=== PATIENT | female | born 1990 | race Caucasian/White ===

== ENCOUNTER 2018-12-11 06:53 | Emergency (ER) | payer BC ==
[~2018-12-11] VITALS: Wt 80.0 kg
[2018-12-11 06:54] VITALS: BP 140/88; PULSE 88; RESP 18
[2018-12-11] MEDS ORDERED: D-ME473S2 PO (07:25)
[2018-12-11] MEDS ORDERED: IBUP-1542 PO (07:25)
[2018-12-11] MEDS ORDERED: AZIT250T PO (07:25)
--- NOTE | 2018-12-11 07:27 | ERD ---
ER Documentation Chief Complaint Chief Complaint flu , couh , javy era aches, st HPI 28-year-old male presents with one-week history of productive cough. She is also has bilateral ear pain and sore throat. May have had fevers at home but no fever triage no measured temperature. Denies chest pain, vomiting, abdominal pain ROS All systems reviewed and are negative except as per history of present illness. Medications Home Meds Active Scripts Azithromycin* (Zithromax*) 250 Mg Tablet, 250 MG PO .ZPACK DIRECTED, #6 TAB TAKE 500 MG (2 TABS) THE FIRST DAY THEN 250 MG (1 TAB) DAYS 2-5 Prov:SUSAN YU MD 12/11/18 Dextromethorphan Hb-Promethazine Hcl* (Promethazine DM* Syrup) 473 Ml Syrup, 5 ML PO Q6 PRN for COUGH for 5 Days, ML Prov:SUSAN YU MD 12/11/18 Ibuprofen* (Motrin*) 600 Mg Tab, 600 MG PO Q6, #15 TAB Prov:SUSAN YU MD 12/11/18 Allergies Allergies: Coded Allergies: No Known Allergies (Verified Allergy, Unknown, 09/19/13) PMhx/Soc History of Surgery: Yes (Appendix) Anesthesia Reaction: No Hx Neurological Disorder: No Hx Respiratory Disorders: No Hx Cardiac Disorders: No Hx Psychiatric Problems: No Hx Miscellaneous Medical Probl: Yes (DRUG ABUSE) Hx Alcohol Use: Yes (Socially) Hx Substance Use: No Hx Tobacco Use: No FmHx Family History: No diabetes, No coronary disease, No other Physical Exam Vitals Vital Signs Date Temp Pulse Resp B/P (MAP) Pulse Ox O2 O2 Flow FiO2 Time Delivery Rate 12/11/18 97.8 88 18 140/88 97 06:54 (105) Physical Exam Const: No acute distress Head: Atraumatic Eyes: Normal Conjunctiva ENT: Normal External Ears, Nose and Mouth. Clear fluid decreased light reflex. Nasal congestion. Postnasal drip. Neck: Full range of motion. No meningismus. Resp: Clear to auscultation bilaterally. Coarse cough without rales, wheezing or retractions. Cardio: Regular rate and rhythm, no murmurs Abd: Soft, non tender, non distended. Normal bowel sounds Skin: No petechiae or rashes Back: No midline or flank tenderness Ext: No cyanosis, or edema Neur: Awake and alert Psych: Normal Mood and Affect Procedures/MDM Patient presents with URI symptoms worsening over the last week. She has numbness of hypoxemia, rest or distress, signs of pneumonia on exam. Given the duration patient request productive cough she will be treated empirically with Zithromax, promethazine, ibuprofen, primary care follow-up and return precautions. The patient was stable with no new complaints during the ER course. Clinically, there is no current evidence to suggest meningitis, sepsis, acute abdomen, pneumonia, stroke, acute coronary syndrome, pulmonary embolism, aortic dissection or any other emergent condition appearing to require further evaluation or hospitalization. Patient counseled regarding my diagnostic impression and care plan. Prior to discharge all questions answered. Pt agrees with treatment plan and understands strict return precautions. Pt is instructed to follow up with primary care provider within 24-48 hours. Precautionary instructions provided including instructions to return to the ER if not improving or for any worsening or changing symptoms or concerns. Disclaimer: Inadvertent spelling and grammatical errors are likely due to EHR/dictation software use and do not reflect on the overall quality of patient care. Also, please note that the electronic time recorded on this note does not necessarily reflect the actual time of the patient encounter. Departure Diagnosis: Primary Impression: Upper respiratory infection URI type: unspecified URI Qualified Codes: J06.9 - Acute upper respiratory infection, unspecified Condition: Stable Patient Instructions: Bronchitis, Antiobiotic Treatment (Adult) Referrals: NO PRIMARY,CARE PHYSICIAN (PCP) Additional Instructions: Recheck for new or worsening symptoms with primary care doctor. SUSAN YU MD Dec 11, 2018 07:27
== END 2018-12-11 07:53 | disposition home or self-care (01) ==
LOC: FTE 06:53
DX: J06.9 Acute upper respiratory infection, unspecified (principal)
CPT/HCPCS: 99283

== ENCOUNTER 2019-01-25 07:53 | Emergency (ER) | payer BC ==
[~2019-01-25] VITALS: Ht 157.5 cm; Wt 87.0 kg
[~2019-01-25 07:53] MED LIST: AZIT250T PO; D-ME473S2 PO; IBUP-1542 PO
[2019-01-25 07:55] VITALS: BP 156/90; PULSE 88; RESP 18; Ht 157.5 cm; Wt 87.0 kg
[2019-01-25] MEDS ORDERED: IBUPROFEN 800 MG TAB PO ONE (09:00)
--- NOTE | 2019-01-25 09:17 | ERD ---
ER Documentation Chief Complaint Chief Complaint B/L FOOT PAIN AND SWELLING X 3 DAYS , DENIES INJURY HPI This is a 29-year-old female with a history of hypertension who presents ED with bilateral foot/ankle pain times 3 days. Localizes pain to the bilateral ankles. Patient states that yesterday after doing a lot of heavy walking she noticed that her feet are swollen. Patient states that the swelling has subsided. Patient denies any lower leg pain or swelling. Denies any fever, chills, redness, tingling, numbness, lack sensation, purulent drainage. No known drug allergies. Denies chest pain, shortness breath, trouble breathing. ROS All systems reviewed and are negative except as per history of present illness. Medications Home Meds Active Scripts Azithromycin* (Zithromax*) 250 Mg Tablet, 250 MG PO .ZPACK DIRECTED, #6 TAB TAKE 500 MG (2 TABS) THE FIRST DAY THEN 250 MG (1 TAB) DAYS 2-5 Prov:SUSAN YU MD 12/11/18 Dextromethorphan Hb-Promethazine Hcl* (Promethazine DM* Syrup) 473 Ml Syrup, 5 ML PO Q6 PRN for COUGH for 5 Days, ML Prov:SUSAN YU MD 12/11/18 Ibuprofen* (Motrin*) 600 Mg Tab, 600 MG PO Q6, #15 TAB Prov:SUSAN YU MD 12/11/18 Allergies Allergies: Coded Allergies: No Known Allergies (Verified Allergy, Unknown, 09/19/13) PMhx/Soc History of Surgery: Yes (Appendectomy) Anesthesia Reaction: No Hx Neurological Disorder: No Hx Respiratory Disorders: No Hx Cardiac Disorders: Yes (htn) Hx Psychiatric Problems: No Hx Miscellaneous Medical Probl: Yes (DRUG ABUSE) Hx Alcohol Use: Yes (Socially) Hx Substance Use: No Hx Tobacco Use: No Smoking Status: Never smoker Physical Exam Vitals Vital Signs Date Temp Pulse Resp B/P (MAP) Pulse Ox O2 O2 Flow FiO2 Time Delivery Rate 01/25/19 98.5 88 18 156/90 100 07:55 (112) Physical Exam Const: No acute distress Head: Atraumatic Eyes: Normal Conjunctiva ENT: Normal External Ears, Nose and Mouth. Neck: Full range of motion. No meningismus. Resp: Clear to auscultation bilaterally Cardio: Regular rate and rhythm, no murmurs Ext: No cyanosis, or edema Lower Extremity - bilateral: Skin: No laceration Compartments: Soft Motor: Full active range of motion hip/knee/ankle/foot Sensation: Intact to light touch FDWS/MF/LF/P surfaces. Bones: Nontender pelvis/knee/proximal tibia/ malleoli/foot Joints: No effusion or laxity Pulses/Perfusion: 2+ DP, Capillary refill < 2 seconds No calf swelling or calf tenderness, Homans sign negative, no calf size discrepancy Neur: Awake and alert Psych: Normal Mood and Affect Results 24 hrs Current Medications Medications Dose Sig/Rena Start Time Status Last (Trade) Ordered Route PRN Stop Time Admin Dose Reason Admin Ibuprofen 800 mg ONCE ONCE 01/25/19 DC 01/25/19 (Motrin) PO 09:00 09:03 01/25/19 09:01 Procedures/MDM EKG, MONITORS, & DIAGNOSTIC IMAGING: [place] [address] Radiology Main Line: [phone] DIAGNOSTIC IMAGING REPORT Patient: TATO MORAN : 1990 Age: 29 Sex: F MR #: [id number] DOS: 01/25/19 0852 Ordering MD: DRE ROGERS PA-C Location: [facility] Room/Bed: PROCEDURE: XR Ankle. CLINICAL INDICATION: Pain TECHNIQUE: AP, oblique and lateral views of the left ankle were performed. COMPARISON: None. FINDINGS: There is normal mineralization and alignment. No acute fracture or osseous lesion is identified. The joints are normal. The soft tissues are unremarkable. RPTAT: AA IMPRESSION: Unremarkable left ankle. .Juan Miguel Ochoa MD, Date Time Electronically viewed and signed by .Juan Miguel Ochoa MD, on 01/25/2019 09:37 .S/ CC: DRE ROGERS PA-C [id number] [place] [address] Radiology Main Line: [phone] DIAGNOSTIC IMAGING REPORT Patient: TATO MORAN : 1990 Age: 29 Sex: F MR #: [id number] DOS: 01/25/19 0852 Ordering MD: DRE ROGERS PA-C Location: [facility] Room/Bed: PROCEDURE: XR Ankle. CLINICAL INDICATION: Pain TECHNIQUE: AP, oblique and lateral views of the right ankle were performed. COMPARISON: None. FINDINGS: There is normal mineralization and alignment. No acute fracture or osseous lesion is identified. The joints are normal. The soft tissues are unremarkable. RPTAT: AA IMPRESSION: Unremarkable right ankle. .Juan Miguel Ochoa MD, MD Date Time Electronically viewed and signed by .Juan Miguel Ochoa MD, MD on 01/25/2019 09:38 .S/ CC: DRE ROGERS PA-C [id number] ER COURSE: The patient was given ibuprofen The medication was well tolerated and the patient reports improvement in symptoms. The patient was stable throughout ED course. I kept the patient and/or family informed of laboratory and diagnostic imaging results throughout the emergency room course. The patient was promptly evaluated and a treatment plan was devised based on H&P and other data. This plan was discussed with the patient who agreed and had no further questions or concerns prior to discharge. MEDICAL DECISION MAKING: This is a 29-year-old female presents ED with bilateral ankle/foot pain for the past 3 days. Patient also stated that she had some foot swelling bilaterally yesterday but it has since subsided. Patient does not have any foot swelling in the emergency department today. I believe that patient's ankle and foot pain is dependent on walking heavily and also patient is overweight. I did discuss with patient that she needs to lose weight by improving diet and increasing cardio. And that she should wear compression stockings throughout the day as well as elevate the feet at the end of the day. History and physical examination other data not consistent with emergent processes including but not limited to fracture, dislocation, tendon rupture, ischemia, neurovascular injury, compartment syndrome, septic joint, avascular necrosis, osteomyelitis, necrotizing fasciitis, septic joint, septic arthritis, or other emergent conditions. Patient's vitals are stable and can be managed outpatient with close follow-up. Advised patient to follow-up with primary care in the next 48 hours. Return to ED with any worsening symptoms. DISPOSITION PLAN: We discussed follow up with the patient's primary care doctor within 24 to 48 hours. Patient counseled regarding my diagnostic impression and care plan. Prior to discharge all questions answered. Pt agrees with treatment plan and understands strict return precautions. Precautionary instructions provided including instructions to return to the ER if not improving or for any worsening or changing symptoms or concerns. SPECIALIST FOLLOW UP RECOMMENDED: None Patient has been advised to follow up with primary care in 1-2 days. Disclaimer: Inadvertent spelling and grammatical errors are likely due to EHR/dictation software use and do not reflect on the overall quality of patient care. Also, please note that the electronic time recorded on this note does not necessarily reflect the actual time of the patient encounter. Blood Pressure Assessment: Patient's blood pressure was elevated (>120/80) but appears stable without evidence of hypertension emergency or urgency. The patient was counseled about the risks of hypertension and urged to pursue outpat ient monitoring and therapy within a week with their primary care physician. Departure Diagnosis: Primary Impression: Foot pain Laterality: bilateral Qualified Codes: M79.671 - Pain in right foot; M79.672 - Pain in left foot Condition: Stable Patient Instructions: Peripheral Edema, Bilateral, R.I.C.E. Referrals: [facility] Additional Instructions: Patient advised to return to the ED immediately for new or worsening symptoms. Patient advised to follow up with primary care provider in the next 24-48 hours. Patient verbalized understanding and agrees with treatment plan and course of action. If patient has no primary care they may follow up with one of the community clinics listed on the following page or one of the options listed below [facility] + [address] [address] or [facility] [address] [place] [address] [address] DRE ROGERS PA-C 12, 2019 09:17
[2019-01-25] MEDS ORDERED: IBUP-1542 PO (10:09)
== END 2019-01-25 10:31 | disposition home or self-care (01) ==
LOC: FTE 07:53
DX: M79.671 Pain in right foot (principal); M79.672 Pain in left foot; I10 Essential (primary) hypertension
CPT/HCPCS: 73610; Z7610

== ENCOUNTER 2019-03-20 15:51 | Emergency (ER) | payer BC ==
[~2019-03-20] VITALS: Wt 86.6 kg
[2019-03-20 15:54] VITALS: BP 153/98; PULSE 89; RESP 18
[2019-03-20] MEDS ORDERED: IBUPROFEN 800 MG TAB PO ONE (16:30)
[2019-03-20] MEDS ORDERED: IBUP-1542 PO (16:58)
[2019-03-20] MEDS ORDERED: NITR-58 PO (16:58)
--- NOTE | 2019-03-20 18:11 | ERD ---
ER Documentation Chief Complaint Chief Complaint URGENCY/FRECUENCY TO URINATE HPI Patient is a 29-year-old female with no medical problems who presents with a possible urine infection. She initially said that she had a fall yesterday and was complaining of right ankle pain after twisting her ankle. She had no pain initially yesterday but had some swelling and pain today. She is able to walk on her ankle however. She has had no treatment as of yet. She has pain in the bladder and with urination and says she might have a "urine infection". She has no fevers. She denies being . Upon review of old medical records patient has multiple visits to the ER for various complaints. She does not know the name of her primary doctor. ROS All systems reviewed and are negative except as per history of present illness. Medications Home Meds Active Scripts Ibuprofen* (Motrin*) 600 Mg Tab, 600 MG PO Q6H PRN for PAIN AND OR ELEVATED TEMP, #30 TAB Prov:GRISELDA SWEENEY MD 03/20/19 Nitrofurantoin Monohyd Macrocr* (Macrobid*) 100 Mg Capsr, 100 MG PO BID for 7 Days, CAP Prov:GRISELDA SWEENEY MD 03/20/19 Ibuprofen* (Motrin*) 600 Mg Tab, 600 MG PO Q6, #30 TAB Prov:DRE ROGERS PA-C 01/25/19 Azithromycin* (Zithromax*) 250 Mg Tablet, 250 MG PO .ZPACK DIRECTED, #6 TAB TAKE 500 MG (2 TABS) THE FIRST DAY THEN 250 MG (1 TAB) DAYS 2-5 Prov:SUSAN YU MD 12/11/18 Dextromethorphan Hb-Promethazine Hcl* (Promethazine DM* Syrup) 473 Ml Syrup, 5 ML PO Q6 PRN for COUGH for 5 Days, ML Prov:SUSAN YU MD 12/11/18 Ibuprofen* (Motrin*) 600 Mg Tab, 600 MG PO Q6, #15 TAB Prov:SUSAN YU MD 12/11/18 Allergies Allergies: Coded Allergies: No Known Allergies (Verified Allergy, Unknown, 09/19/13) PMhx/Soc Medical and Surgical Hx: pt denies Medical Hx, pt denies Surgical Hx History of Surgery: Yes (APPENDECTOMY) Anesthesia Reaction: No Hx Neurological Disorder: No Hx Respiratory Disorders: No Hx Cardiac Disorders: Yes (HTN) Hx Psychiatric Problems: No Hx Miscellaneous Medical Probl: Yes (DRUG ABUSE) Hx Alcohol Use: No Hx Substance Use: No Hx Tobacco Use: No Smoking Status: Never smoker FmHx Family History: No diabetes Physical Exam Vitals Vital Signs Date Temp Pulse Resp B/P (MAP) Pulse Ox O2 O2 Flow FiO2 Time Delivery Rate 03/20/19 98.0 89 18 153/98 99 15:54 (116) Physical Exam Const: No acute distress Head: Atraumatic Eyes: Normal Conjunctiva ENT: Normal External Ears, Nose and Mouth. Neck: Full range of motion. No meningismus. Resp: Clear to auscultation bilaterally Cardio: Regular rate and rhythm, no murmurs Abd: Soft, non tender, non distended. Normal bowel sounds Skin: No petechiae or rashes Back: No midline or flank tenderness Ext: No medial or lateral malleolus pain, no obvious swelling of the right ankle Neur: Awake and alert Psych: Normal Mood and Affect Results 24 hrs Laboratory Tests Test 03/20/19 16:27 Urine Color FRANCIS Urine Clarity CLOUDY Urine pH 6.0 Urine Specific [place] 1.028 Urine Ketones NEGATIVE mg/dL Urine Nitrite NEGATIVE mg/dL Urine Bilirubin NEGATIVE mg/dL Urine Urobilinogen NEGATIVE mg/dL Urine Leukocyte Esterase 2+ Cash/ul Urine Microscopic RBC > 182 /HPF Urine Microscopic WBC > 182 /HPF Urine Squamous Epithelial Cells FEW /HPF Urine Mucus MODERATE /HPF Urine Hemoglobin 3+ mg/dL Urine Glucose NEGATIVE mg/dL Urine Total Protein 2+ mg/dl Urine Test NEGATIVE Current Medications Medications Dose Sig/Rena Start Time Status Last (Trade) Ordered Route PRN Stop Time Admin Dose Reason Admin Ibuprofen 800 mg ONCE ONCE 03/20/19 DC 03/20/19 (Motrin) PO 16:30 03/20/19 16:35 16:31 Procedures/MDM Urine test is negative. Urine dip is positive for infection. Patient is a 29-year-old female presents with acute cystitis. She will be treated with Macrobid for 1 week course. Patient has some ankle pain but I doubt fracture at this time and I do not believe she requires x-rays. The patient likely has an ankle sprain. She will be given ibuprofen for pain and inflammation. She should follow-up with her primary doctor within 1 week. She can return for any worsening symptoms. Departure Diagnosis: Primary Impression: Ankle sprain Encounter type: initial encounter Involved ligament of ankle: unspecified ligament Laterality: right Qualified Codes: S93.401A - Sprain of unspecif ied ligament of right ankle, initial encounter Additional Impression: Cystitis Condition: Fair Patient Instructions: Treating Ankle Sprains, Cystitis Referrals: Your doctor Additional Instructions: Call your primary care doctor TOMORROW for an appointment during the next 1 WEEK.Tell the typing secretary that you were referred from this facility.See the doctor sooner or return here if your condition worsens before your appointment time. GRISELDA SWEENEY MD March 20, 2019 18:11
== END 2019-03-20 17:04 | disposition home or self-care (01) ==
LOC: FTE 15:51
DX: S93.401A Sprain of unspecified ligament of right ankle, initial encounter (principal); I10 Essential (primary) hypertension; N30.90 Cystitis, unspecified without hematuria; X50.1XXA Overexertion from prolonged static or awkward postures, initial encounter; Y92.9 Unspecified place or not applicable
CPT/HCPCS: 81001; 84703; Z7502; Z7610; 99283

== ENCOUNTER 2019-03-31 20:49 | Emergency (ER) | payer SELFPAY ==
[~2019-03-31] VITALS: Wt 87.8 kg
[~2019-03-31 20:49] MED LIST changes: +NITR-58 PO
[2019-03-31 21:13] VITALS: BP 144/107; PULSE 97; RESP 18
== END 2019-03-31 21:45 | disposition left against medical advice (07) ==
LOC: FTE 20:49
DX: Z53.21 Procedure and treatment not carried out due to patient leaving prior to being seen by health care provider (principal)

== ENCOUNTER 2019-06-27 20:40 | Emergency (ER) | payer BC ==
[~2019-06-27] VITALS: Ht 157.5 cm; Wt 87.9 kg
[~2019-06-27 20:40] MED LIST changes: +LORA-441 PO
[2019-06-27 20:44] VITALS: Ht 157.5 cm; Wt 87.9 kg
[2019-06-27] MEDS ORDERED: hydrALAzine 20 MG INJ IV ONE (21:30)
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
[2019-06-27 23:27] VITALS: BP 129/72; PULSE 83; RESP 17
== END 2019-06-27 23:27 | disposition home or self-care (01) ==
LOC: E/R 20:40
DX: R51 Headache (principal); I10 Essential (primary) hypertension
CPT/HCPCS: 36415; 70450; 71045; 80048; 81001; 81025; 84484; 85025; 85610; 85730; 93005; Z7502; 81003

== ENCOUNTER 2019-07-11 00:56 | Emergency (ER) | payer BC ==
[~2019-07-11] VITALS: Ht 157.5 cm; Wt 88.0 kg
[~2019-07-11 00:56] MED LIST changes: +LORA1TAB PO
[2019-07-11 01:06] VITALS: Ht 157.5 cm; Wt 88.0 kg
[2019-07-11] MEDS ORDERED: SOD CHLORIDE 0.9% 1,000 ML IV STA (02:06)
[2019-07-11] MEDS ORDERED: LORAZEPAM 2 MG INJ IV ONE (02:30)
[2019-07-11 03:30] VITALS: BP 150/98; PULSE 88; RESP 18
== END 2019-07-11 03:33 | disposition home or self-care (01) ==
LOC: E/R 00:56
DX: I10 Essential (primary) hypertension (principal); F15.10 Other stimulant abuse, uncomplicated; R20.2 Paresthesia of skin; F17.210 Nicotine dependence, cigarettes, uncomplicated
CPT/HCPCS: 36415; 80053; 81001; 81025; 83690; 84484; 85025; 93005; 96374; J2060; J7030; Z7502; 81003

== ENCOUNTER 2019-07-12 00:48 | Emergency (ER) | payer BC ==
[~2019-07-12] VITALS: Ht 157.5 cm; Wt 88.9 kg
[2019-07-12 00:50] VITALS: Ht 157.5 cm; Wt 88.9 kg
[2019-07-12] MEDS ORDERED: LORAZEPAM 1 MG TAB PO ONE (03:00)
[2019-07-12 03:13] VITALS: BP 123/69; PULSE 80; RESP 18
== END 2019-07-12 03:13 | disposition home or self-care (01) ==
LOC: FTE 00:48
DX: R20.2 Paresthesia of skin (principal); I10 Essential (primary) hypertension; F17.210 Nicotine dependence, cigarettes, uncomplicated; M79.673 Pain in unspecified foot; M79.643 Pain in unspecified hand; L98.9 Disorder of the skin and subcutaneous tissue, unspecified; F41.9 Anxiety disorder, unspecified
CPT/HCPCS: 81025; Z7502; Z7610; 99283

== ENCOUNTER 2019-07-20 17:06 | Emergency (ER) | payer BC ==
[~2019-07-20] VITALS: Ht 157.5 cm; Wt 88.2 kg
[2019-07-20 17:10] VITALS: Ht 157.5 cm; Wt 88.2 kg
[2019-07-20] MEDS ORDERED: LORAZEPAM 2 MG INJ IM ONE (18:30)
[2019-07-20 19:05] VITALS: BP 134/77; PULSE 91; RESP 16
== END 2019-07-20 19:05 | disposition home or self-care (01) ==
LOC: FTE 17:06
DX: F41.9 Anxiety disorder, unspecified (principal); F17.210 Nicotine dependence, cigarettes, uncomplicated; F19.10 Other psychoactive substance abuse, uncomplicated; I10 Essential (primary) hypertension
CPT/HCPCS: 93005; 96372; J2060; Z7502

== ENCOUNTER 2019-09-18 14:48 | Emergency (ER) | payer BC ==
[~2019-09-18] VITALS: Ht 157.5 cm; Wt 90.2 kg
[~2019-09-18 14:48] MED LIST changes: +AMOX1TAB10 PO; +HYDR-4011 PO
[2019-09-18 14:52] VITALS: Ht 157.5 cm; Wt 90.2 kg
[2019-09-18] MEDS ORDERED: KETOROLAC 60 MG INJ IM STA (15:33)
[2019-09-18] MEDS: AMPICILLIN/SULBAC 3 GM INJ IM ONE ×2 (15:52→16:00)
[2019-09-18] MEDS: AMPICILLIN/SULB 3 GM/NS (PMX) 100 ML IVPB ONE ×2 (15:59→16:22)
[2019-09-18] MEDS ORDERED: OXYCODONE/ACETAMINOPHEN (5/325) TAB PO ONE (16:00)
[2019-09-18 17:36] VITALS: BP 123/76; PULSE 78; RESP 18
== END 2019-09-18 17:38 | disposition home or self-care (01) ==
LOC: FTE 14:48
DX: K08.9 Disorder of teeth and supporting structures, unspecified (principal); I10 Essential (primary) hypertension; F17.210 Nicotine dependence, cigarettes, uncomplicated
CPT/HCPCS: 81025; J0295; J1885; Z7610; 96372; 96374